=== PATIENT | female | born 1985 | race Caucasian/White ===

== ENCOUNTER → 2019-07-14 | Outpatient (CLI) | payer OTHER ==
--- NOTE | 2019-07-14 15:17 | Diagnostic Imaging Report ---
EXAMINATION: SP LUMBAR, COMPLETE MIN 4VW INDICATION: Back pain COMPARISON: None FINDINGS: No compression fracture. Normal lumbar spine alignment. No substantial degenerative changes. The soft tissues appear unremarkable. Nonobstructive bowel gas pattern. No free air. IMPRESSION: Unremarkable lumbar spine radiographs. Signed by: Geovani Langston MD on 07/14/2019 3:14 PM
== END ==
LOC: RAD 14:10
PROVIDERS: ATTEND Internal Medicine
DX: M54.5 Low back pain (principal)
CPT/HCPCS: 72110; 81025